=== PATIENT | male | born 1950 | race Caucasian/White ===

== ENCOUNTER 2017-04-22 11:36 | Emergency (ER) | payer MEDICARE ==
[~2017-04-22] VITALS: Ht 182.9 cm; Wt 62.4 kg
[2017-04-22] MEDS ORDERED: HYDROcodone/APAP 5/325 TABLET PO ONE (12:30)
[2017-04-22] MEDS ORDERED: SODIUM CHLORIDE 0.9% 1,000ML IVBOLUS ONE (12:30)
[2017-04-22 12:44] LABS: ASPARTATE AMINO TRANSFERASE 36 U/L (15-37); BLOOD UREA NITROGEN 20 mg/dL (7-18)
[2017-04-22] MEDS ORDERED: HYDROcodone/APAP 5/325 TABLET ONE (12:54)
[2017-04-22] MEDS ORDERED: SODIUM CHLORIDE FLUSH 10ML SYR IVF ONE (13:00)
[2017-04-22] MEDS ORDERED: OMNIPAQUE 350 MG/ML, 100ML BOTTLE ONE (13:40)
[2017-04-22] MEDS ORDERED: DOCUSATE 100 MG CAPSULE PO PRN (14:30)
[2017-04-22] MEDS ORDERED: DOCUSATE 100 MG CAPSULE ONE (14:37)
[2017-04-22 14:41] VITALS: BP 123/67
== END 2017-04-22 14:49 | disposition home or self-care (01) ==
LOC: ED 14:08
DX: S00.12XA Contusion of left eyelid and periocular area, initial encounter (principal); R31.29 Other microscopic hematuria; Z87.891 Personal history of nicotine dependence; Y04.8XXA Assault by other bodily force, initial encounter; Y93.89 Activity, other specified; Y99.8 Other external cause status; Y92.009 Unspecified place in unspecified non-institutional (private) residence as the place of occurrence of the external cause
CPT/HCPCS: 36415; 74177; 80053; 81001; 83690; 85025; 87086; 96360; 96361; 99285; J7030; Q9967